=== PATIENT | female | born 1975 | race Hispanic/Latino ===

== ENCOUNTER 2022-11-28 16:14 | Emergency (ER) | payer SELFPAY | END 2022-11-28 16:39 | disposition home or self-care (01) | LOC: NAV ERS 16:14 | DX: H11.31 Conjunctival hemorrhage, right eye (principal) | CPT/HCPCS: 99282 ==

== ENCOUNTER 2023-05-19 18:51 | Emergency (ER) | payer SELFPAY ==
[2023-05-19] MEDS ORDERED: Ipratropium/Albuterol 3 ML NEB ONE (19:16)
[2023-05-19] MEDS ORDERED: Sodium Chloride 0.9% 1,000 ML ONE (19:16)
[2023-05-19] MEDS ORDERED: Ketorolac Tromethamine 30 MG/ML VIAL ONE (19:16)
[2023-05-19] MEDS ORDERED: Benzonatate 100 MG CAP ONE (19:21)
[2023-05-19 19:46] LABS: #Basophils 0.1 thou/uL (0.0-0.2); #Eosinphils 0.8 thou/uL (0.0-0.7); #Lymphocytes 3.7 thou/uL (1.20-3.40); #Monocytes 0.6 thou/uL (0.11-0.59); #Neutrophils 4.8 thou/uL (1.40-6.50); %Basophils 1.2 % (0.0-1.0); %Eosinophils 7.9 % (0.0-10.0); %Lymphocytes 36.4 % (21.0-51.0); %Monocytes 6.3 % (0.0-10.0); %Neutrophils 48.2 % (42.0-75.0); Hemoglobin 13.9 g/dL (12.0-16.0); Mean Corpuscular HGB CONC 33.3 g/dL (32.0-36.0); Mean Platelet Volume 7.9 fL (7.4-10.4); Platelet Count 317 10x3/uL (130-400); RBC Distribution Width 12.2 % (11.5-14.5); Red Blood Cell (RBC) Count 4.62 mill/uL (4.20-5.40)
[2023-05-19 19:50] LABS: ALT (SGPT) 17 U/L (8-55); AST (SGOT) 23 U/L (5-34); Albumin 4.5 g/dL (3.5-5.0); Alkaline Phosphatase 87 U/L (40-110); Anion Gap 13 mmol/L (10-20); BUN (Urea Nitrogen) 9 mg/dL (7.0-18.7); Bilirubin, Total 0.4 mg/dL (0.2-1.2); Calc. Creatinine Clearance 0 mL/min (70-130); Calcium 9.5 mg/dL (7.8-10.44); Carbon Dioxide 24 mmol/L (22-29); Chloride 105 mmol/L (98-107); Estimated GFR 90; Globulin 3.1 g/dL (2.4-3.5); Glucose 118 mg/dL (70-105); Potassium 3.8 mmol/L (3.5-5.1); Protein, Total 7.6 g/dL (6.0-8.3); Sodium 138 mmol/L (136-145)
== END 2023-05-19 21:04 | disposition home or self-care (01) ==
LOC: NAV ERS 18:51
DX: J40 Bronchitis, not specified as acute or chronic (principal)
CPT/HCPCS: 71046; 80053; 83605; 83880; 84484; 85025; 87040; 87804; 87807; 93005; 94760; 96361; 96374; J1885; J7050; J7620